=== PATIENT | female | born 1975 | race Two or more races ===

== ENCOUNTER 2023-04-13 11:36 | Emergency (ER) | payer OTHER ==
[~2023-04-13] VITALS: Ht 152.4 cm; Wt 73.7 kg
[2023-04-13] MEDS ORDERED: KETOROLAC TROMETH 60MG/2ML VIAL IM ONE (11:45)
[2023-04-13 12:04] LABS: Basophils # (auto) 0.1 10 ^3/uL (0-0.2); Basophils % (auto) 0.8 % (0.0-2.0); Eosinophils # (auto) 0.1 10 ^3/uL (0-0.8); Eosinophils % (auto) 1.3 % (0.0-7.0); Hematocrit 38.4 % (36.0-46.0); Hemoglobin 12.7 g/dL (12.2-16.2); Lymphocytes # (auto) 1.9 10 ^3/uL (0.4-5.4); Lymphocytes % (auto) 16.2 % (10.0-50.0); Mean Corpuscular Hemoglobin 30.7 pg (28.0-32.0); Mean Corpuscular Hgb Conc. 33.1 g/dL (32.0-36.0); Mean Corpuscular Volume 92.6 fL (80.0-100.0); Monocytes # (auto) 0.6 10 ^3/uL (0-1.3); Monocytes % (auto) 5.4 % (0.0-12.0); Neutrophils % (auto) 76.3 % (37.0-80.0); Red Blood Cells 4.15 10^6/uL (4.0-5.20); Red Cell Distribution Width 13.4 % (11.8-14.3); White Blood Cell 11.8 10^3/uL (4.4-10.8)
[2023-04-13 12:17] LABS: INR 1.04 (0.9-1.15); Partial Thromboplastin Time 24.9 SEC (24.5-34.5); Prothrombin Time 10.9 sec (9.3-11.8)
[2023-04-13 12:30] LABS: Alanine Aminotransferase 31 U/L (7-40); Albumin 4.6 g/dL (3.2-4.8); Alkaline Phosphatase 46 U/L (46-116); Anion Gap 8.7 (5-15); Aspartate Aminotransferase 16 U/L (13-40); BUN/Creatinine Ratio 11.8 (10.0-20.0); Bilirubin, Total 0.7 mg/dL (0.2-1.0); Blood Urea Nitrogen 9 mg/dL (9-23); Calcium 9.2 mg/dL (8.5-10.1); Carbon Dioxide 21.3 mmol/L (20-30); Chloride 109 mmol/L (98-107); Glucose 101 mg/dL (74-106); Potassium 3.6 mmol/L (3.5-5.1); Sodium 139 mmol/L (136-145); Total Protein 7.2 g/dL (5.7-8.2)
[2023-04-13 12:55] LABS: Urine Bacteria FEW /hpf (None Seen); Urine Blood Negative /uL (Negative); Urine Clarity Clear (Clear); Urine Color Yellow (Yellow); Urine Mucus FEW (None Seen); Urine Protein, UAD TRACE (Negative); Urine Specific Gravity 1.026 (1.001-1.035); Urine Urobilinogen Normal (Negative); Urine WBC 1 /hpf (0 - 5)
[2023-04-13 14:15] VITALS: BP 119/73; PULSE 67; RESP 17; TEMP 98.1; O2SAT 98
[2023-04-13] MEDS ORDERED: TRAM50TA2 PO (14:18)
== END 2023-04-13 14:22 | disposition home or self-care (01) ==
LOC: ER 11:36
DX: R10.2 Pelvic and perineal pain (principal); D72.829 Elevated white blood cell count, unspecified; Z98.51 Tubal ligation status
CPT/HCPCS: 36415; 74176; 76830; 76856; 80053; 81001; 85025; 85610; 85730; 96372; 99285; J1885

== ENCOUNTER 2023-06-12 04:18 | Emergency (ER) | payer OTHER ==
[~2023-06-12] VITALS: Ht 152.4 cm; Wt 74.5 kg
[~2023-06-12 04:18] MED LIST: TRAM50TA2 PO
[2023-06-12 05:25] LABS: Alanine Aminotransferase 27 U/L (7-40); Albumin 4.8 g/dL (3.2-4.8); Alkaline Phosphatase 53 U/L (46-116); Aspartate Aminotransferase 18 U/L (13-40); BUN/Creatinine Ratio 12.5 (10.0-20.0); Basophils # (auto) 0.1 10 ^3/uL (0-0.2); Basophils % (auto) 0.7 % (0.0-2.0); Blood Urea Nitrogen 9 mg/dL (9-23); Chloride 107 mmol/L (98-107); Eosinophils # (auto) 0.1 10 ^3/uL (0-0.8); Eosinophils % (auto) 0.7 % (0.0-7.0); Glucose 120 mg/dL (74-106); Hematocrit 37.9 % (36.0-46.0); Hemoglobin 12.9 g/dL (12.2-16.2); Lymphocytes % (auto) 16.8 % (10.0-50.0); Mean Corpuscular Hemoglobin 31.8 pg (28.0-32.0); Mean Corpuscular Hgb Conc. 34.1 g/dL (32.0-36.0); Monocytes # (auto) 0.6 10 ^3/uL (0-1.3); Monocytes % (auto) 5.4 % (0.0-12.0); Neutrophils # (auto) 9.1 10 ^3/uL (1.6-8.6); Neutrophils % (auto) 76.4 % (37.0-80.0); Potassium 3.7 mmol/L (3.5-5.1); Red Blood Cells 4.08 10^6/uL (4.0-5.20); Red Cell Distribution Width 13.1 % (11.8-14.3); Sodium 137 mmol/L (136-145)
[2023-06-12 05:26] LABS: Bilirubin, Total 0.6 mg/dL (0.2-1.0); Total Protein 7.3 g/dL (5.7-8.2)
[2023-06-12 05:34] LABS: Urine Bacteria FEW /hpf (None Seen); Urine Blood Negative /uL (Negative); Urine Clarity Clear (Clear); Urine Color Yellow (Yellow); Urine Protein, UAD Negative (Negative); Urine Urobilinogen Normal (Negative); Urine WBC 1 /hpf (0 - 5)
[2023-06-12 05:49] LABS: Anion Gap 9 (5-15); Carbon Dioxide 21 mmol/L (20-30)
[2023-06-12] MEDS ORDERED: metroNIDAZOLE 500MG/100ML 100 ML IV ONE (12:15)
[2023-06-12] MEDS ORDERED: levoFLOXacin 500MG 100 ML IV ONE (12:15)
[2023-06-12] MEDS ORDERED: METR375C PO (13:13)
[2023-06-12] MEDS ORDERED: CIPR-173 PO (13:13)
[2023-06-12 14:38] VITALS: BP 130/85; PULSE 64; RESP 16; TEMP 98; O2SAT 99
== END 2023-06-12 14:39 | disposition left against medical advice (07) ==
LOC: ER 04:18
DX: R10.2 Pelvic and perineal pain (principal); K52.9 Noninfective gastroenteritis and colitis, unspecified; D25.9 Leiomyoma of uterus, unspecified; D72.829 Elevated white blood cell count, unspecified
CPT/HCPCS: 36415; 74176; 76830; 76856; 80053; 81001; 81025; 85025